=== PATIENT | female | born 1975 | race Two or more races ===

== ENCOUNTER 2019-11-22 08:16 | Outpatient (CLI) | payer OTHER ==
[~2019-11-22] VITALS: Ht 170.2 cm; Wt 63.5 kg
== END 2019-11-22 15:22 | disposition home or self-care (01) ==
LOC: OFIC 805 08:16
DX: H66.92 Otitis media, unspecified, left ear (principal); R09.81 Nasal congestion; H91.8X2 Other specified hearing loss, left ear

== ENCOUNTER → 2021-08-06 | Outpatient (CLI) | payer OTHER | END | disposition home or self-care (01) | LOC: PPH VACUNA 09:20 | PROVIDERS: ATTEND Emergency Medicine Pediatric Emergency Medicine | DX: Z23 Encounter for immunization (principal) ==

== ENCOUNTER 2022-07-21 08:04 | Emergency (ER) | payer OTHER ==
[~2022-07-21] VITALS: Ht 171.4 cm; Wt 86.2 kg
== END 2022-07-21 11:54 | disposition home or self-care (01) ==
LOC: ER 08:04
DX: S29.012A Strain of muscle and tendon of back wall of thorax, initial encounter (principal); S21.209A Unspecified open wound of unspecified back wall of thorax without penetration into thoracic cavity, initial encounter; X83.8XXA Intentional self-harm by other specified means, initial encounter; Y93.9 Activity, unspecified; M54.6 Pain in thoracic spine; M54.59 Other low back pain; Z88.0 Allergy status to penicillin

== ENCOUNTER 2024-01-05 08:44 | Outpatient (CLI) | payer OTHER | END 2024-01-05 08:54 | disposition home or self-care (01) | LOC: SONOGRAMA 08:44 | PROVIDERS: ATTEND Internal Medicine | DX: N93.9 Abnormal uterine and vaginal bleeding, unspecified (principal) ==

== ENCOUNTER 2024-12-12 08:08 | Outpatient (CLI) | payer OTHER | END 2024-12-12 08:13 | disposition home or self-care (01) | LOC: NUCLEAR 08:08 | PROVIDERS: ATTEND Internal Medicine | DX: I87.2 Venous insufficiency (chronic) (peripheral) (principal); I73.9 Peripheral vascular disease, unspecified ==

== ENCOUNTER 2024-12-13 07:59 | Outpatient (CLI) | payer OTHER | END 2024-12-13 08:00 | disposition home or self-care (01) | LOC: NUCLEAR 07:59 | PROVIDERS: ATTEND Internal Medicine | DX: I87.2 Venous insufficiency (chronic) (peripheral) (principal); I73.9 Peripheral vascular disease, unspecified ==